=== PATIENT | female | born 1950 | race Caucasian/White ===

== ENCOUNTER 2018-11-27 10:01 | Outpatient (CLI) | payer BC ==
[2013-02-07 11:18] VITALS: O2SAT 99
== END 2018-11-27 10:02 | disposition home or self-care (01) | DRG 556 ==
LOC: CONVCARE 10:01
PROVIDERS: ATTEND Orthopaedic Surgery
DX: M25.561 Pain in right knee (principal)
CPT/HCPCS: 73560; 73565